=== PATIENT | male | born 1940 | race Caucasian/White ===

== ENCOUNTER 2019-08-14 15:04 | Emergency (ER) | payer MEDICARE, MEDICAID ==
[~2019-08-14] VITALS: Ht 157.5 cm; Wt 59.2 kg
--- NOTE | 2019-08-14 16:58 | REP ---
Two-view chest: 08/14/2019. Indication: Stroke. Comparison: 06/30/2015. Findings: Small left lower lobe air space consolidation is present without pleural effusion or pneumothorax. The cardiomediastinal silhouette is stable. Degenerative sequelae of the thoracic spine are noted. Impression: Small left lower lobe air space consolidation with aspiration and pneumonia considered. Electronically Signed by Kristofer De La Cruz DO 08/14/2019 04:50 P
--- NOTE | 2019-08-14 17:07 | REP ---
CT brain: 08/14/2019. Indication: Stroke. Comparison: None. Technique: New unenhanced axial CT images of the brain were obtained from skull base to vertex. Findings: There is no acute intracranial hemorrhage, acute cortical infarction, mass effect or hydrocephalous. Diffuse volume loss is present. Patchy areas of cerebral white matter hypoattenuation are present most consistent with chronic small vessel disease. Intracranial atherosclerotic disease is present. Impression: No acute intracranial process. Electronically Signed by Kristofer De La Cruz DO 08/14/2019 04:59 P
[2019-08-14 17:14] LABS: BASO % 0.6 % (0.0-1.0); EOS # 0.1 10^3/uL (0.0-0.5); EOS % 2.2 % (0.0-3.0); HEMOGLOBIN 13.4 g/dl (13.5-17.5); LYMPH # 1.2 10^3/uL (1.5-5.0); LYMPH % 23.5 % (24.0-44.0); MEAN CORPUSCULAR HEMOGLOBIN 31.2 pg (27.0-33.0); MEAN CORPUSCULAR HGB CONC 32.7 g/dl (32.0-36.5); MEAN CORPUSCULAR VOLUME 95.3 fl (80.0-96.0); MONO # 0.7 10^3/uL (0.0-0.8); MONO % 14.3 % (0.0-5.0); NEUTROPHILS % 59.2 % (36.0-66.0); PLATELET COUNT, AUTOMATED 241 10^3/uL (150-450)
[2019-08-14 17:46] LABS: ACETAMINOPHEN LEVEL < 2.0 UG/ML (10.0-30.0); ALBUMIN 3.1 GM/DL (3.2-5.2); ALT/SGPT 10 U/L (12-78); BILIRUBIN,DIRECT 0.1 MG/DL (0.0-0.2); BILIRUBIN,TOTAL 0.4 MG/DL (0.2-1.0); BLOOD UREA NITROGEN 8 MG/DL (7-18); CALCIUM LEVEL 8.5 MG/DL (8.8-10.2); CARBON DIOXIDE LEVEL 32 MEQ/L (21-32); CHLORIDE LEVEL 105 MEQ/L (98-107); CK-MB VALUE MASS 1.4 NG/ML (<3.6); CPK CREATINE PHOSPHOKINASE 33 U/L (39-308); CREATININE FOR GFR 0.72 MG/DL (0.70-1.30); GLOMERULAR FILTRATION RATE > 60.0 (>42); GLUCOSE, FASTING 92 MG/DL (70-100); MB/CK RELATIVE INDEX 4.24 (< OR =4); SALICYLATE LEVEL < 1.7 MG/DL (5.0-30.0); SODIUM LEVEL 140 MEQ/L (136-145); TOTAL PROTEIN 5.9 GM/DL (6.4-8.2); TROPONIN I < 0.02 NG/ML (< 0.10)
[2019-08-14] MEDS ORDERED: DOXY100C37 PO (17:59)
[2019-08-14 18:00] VITALS: BP 126/70
--- NOTE | 2019-08-14 21:07 | ECGEPIP ---
[facility] - ED Test Date: 2019-08-14 Pat Name: JOSE BENDER Department: Room: - Gender: Male Office Spec: mikel : 1940 Requested By: SHAUN BOLTON Order Number: [id number] Reading MD: Yony Mccarty Measurements Intervals [place] Rate: 62 P: 48 NH: 201 QRS: -28 QRSD: 110 T: 48 QT: 420 QTc: 427 Interpretive Statements SINUS RHYTHM BORDERLINE LEFT AXIS DEVIATION Low QRS complex voltage in the limb leads Electronically Signed on 08-14-2019 21:06:31 EST by Yony Mccarty
== END 2019-08-14 18:07 | disposition home or self-care (01) ==
LOC: M ED 15:04
DX: F03.90 Unspecified dementia, unspecified severity, without behavioral disturbance, psychotic disturbance, mood disturbance, and anxiety (principal); J18.1 Lobar pneumonia, unspecified organism
CPT/HCPCS: 70450; 71046; 80048; 80076; 82140; 82550; 82553; 84443; 84484; 85025; 93005; 93041; 94760; 99285; G0480

== ENCOUNTER 2019-11-06 09:36 | Inpatient (IN) | payer MEDICARE, MEDICAID ==
[~2019-11-06 09:36] MED LIST: DOXY100C37 PO
--- NOTE | 2019-11-06 10:50 | REP ---
Portable chest, 10:32 a.m., single frontal view: Comparisons are 08/14/2019 and 06/30/2015. The lung ann are clear. The cardiac size is normal. The sowmya, mediastinum, and skeletal structures are unremarkable. Impression: Negative portable chest. Electronically Signed by Italo Payton MD 11/06/2019 10:41 A
[2019-11-06 10:52] LABS: VENOUS HCO3 25.7 MEQ/L (23.0-27.0); VENOUS O2 SATURATION 84.1 % (60.0-80.0); VENOUS PARTIAL PRESSURE CO2 50.6 mmHg (38.0-50.0); VENOUS PARTIAL PRESSURE O2 50.4 mmHg (30.0-50.0); VENOUS PH 7.323 UNITS (7.330-7.430); VENOUS STANDARD HCO3 23.4 MEQ/L; VENOUS TOTAL CO2 27.2 MEQ/L (24.0-28.0)
[2019-11-06 10:55] LABS: BASO % 0.4 % (0.0-1.0); EOS % 0.6 % (0.0-3.0); HEMATOCRIT 39.1 % (42.0-52.0); HEMOGLOBIN 12.5 g/dl (13.5-17.5); LYMPH # 0.7 10^3/uL (1.5-5.0); LYMPH % 14.1 % (24.0-44.0); MEAN CORPUSCULAR HEMOGLOBIN 30.6 pg (27.0-33.0); MEAN CORPUSCULAR VOLUME 95.8 fl (80.0-96.0); MONO # 0.5 10^3/uL (0.0-0.8); NEUTROPHILS # 3.6 10^3/uL (1.5-8.5); NEUTROPHILS % 74.7 % (36.0-66.0); PLATELET COUNT, AUTOMATED 232 10^3/uL (150-450); RED BLOOD COUNT 4.08 10^6/uL (4.30-6.10); WHITE BLOOD COUNT 4.9 10^3/uL (4.0-10.0)
--- NOTE | 2019-11-06 11:09 | REP ---
CT BRAIN WITHOUT IV CONTRAST: CT brain performed without IV contrast. Coronal reconstruction images are performed. Moderate atrophy is unchanged when compared to the prior study of 08/14/2019. There is no midline shift or mass effect. Mild periventricular small vessel ischemic changes are stable. There is no acute intracranial hemorrhage or extra-axial fluid collection. Bone window examination is unremarkable. There are minor carotid siphon vascular calcifications. IMPRESSION: Chronic changes with no evidence of acute intracranial process. Electronically Signed by Italo Falk MD 11/07/2019 11:22 A
--- NOTE | 2019-11-06 11:21 | REP ---
And four views: There are no comparisons. I suspect there is soft tissue edema dorsally over the MCP articulations. This should be confirmed clinically. There is no fracture or dislocation. No calcifications or foreign bodies. The skeletal structures and soft tissues otherwise are unremarkable. Impression: Possible soft tissue edema dorsally over the MCP articulations. Correlate clinically. Otherwise, negative left hand. Electronically Signed by Italo Payton MD 11/06/2019 11:12 A
[2019-11-06 11:33] LABS: ALBUMIN 3.5 GM/DL (3.2-5.2); ALT/SGPT 12 U/L (12-78); BILIRUBIN,DIRECT 0.2 MG/DL (0.0-0.2); BILIRUBIN,TOTAL 0.5 MG/DL (0.2-1.0); BLOOD UREA NITROGEN 17 MG/DL (7-18); CALCIUM LEVEL 8.5 MG/DL (8.8-10.2); CARBON DIOXIDE LEVEL 29 MEQ/L (21-32); CHLORIDE LEVEL 107 MEQ/L (98-107); CK-MB VALUE MASS 2.8 NG/ML (<3.6); CPK CREATINE PHOSPHOKINASE 177 U/L (39-308); CREATININE FOR GFR 0.56 MG/DL (0.70-1.30); GLOMERULAR FILTRATION RATE > 60.0 (>42); GLUCOSE, FASTING 127 MG/DL (70-100); MB/CK RELATIVE INDEX 1.58 (< OR =4); POTASSIUM SERUM 4.2 MEQ/L (3.5-5.1); SODIUM LEVEL 139 MEQ/L (136-145); THYROID STIMULATING HORMONE 0.871 uIU/ML (0.358-3.740); TOTAL PROTEIN 6.3 GM/DL (6.4-8.2); TROPONIN I < 0.02 NG/ML (< 0.10)
[2019-11-06 11:42] LABS: OSMOLALITY SERUM 292 MOSM/KG (280-301)
[2019-11-06] MEDS ORDERED: PERCTAB2 PO (12:10)
[2019-11-06] MEDS ORDERED: ACETAMINOPHEN TAB 650MG DOSE (2X325MG) PO PRN (14:15)
[2019-11-06] MEDS ORDERED: HALOPERIDOL 5 MG/ML VIAL (J1630) IV PRN (15:00)
[2019-11-06 15:06] VITALS: BP 138/74
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
[2019-11-06] MEDS: DONEPEZIL 5 MG TAB PO SCH (20:14)
[2019-11-06] MEDS: DOCUSATE SODIUM 100 MG CAP PO SCH (20:14)
[2019-11-06] MEDS: traZODone 25MG PER 1/2 TABLET PO SCH (20:14)
[2019-11-06 22:00] VITALS: BP 121/72
[2019-11-07 06:00] VITALS: BP 123/74
[2019-11-07] MEDS: lisinopriL 10 MG TAB PO SCH ×2 (09:00→09:18)
[2019-11-07] MEDS: MEMANTINE 5MG TABLET (NAMENDA) PO SCH ×2 (09:00→09:18)
[2019-11-07] MEDS: ENOXAPARIN 40 MG/0.4 ML SYRINGE (J1650) SC SCH ×2 (09:00→09:17)
[2019-11-07] MEDS: DOCUSATE SODIUM 100 MG CAP PO SCH ×3 (09:00→21:09)
[2019-11-07 10:26] LABS: TOTAL 25(OH) VITAMIN D 15.6 NG/ML (30.0-100.0)
[2019-11-07 10:28] LABS: FOLATE 7.9 NG/ML (>5.4); VITAMIN B12 LEVEL 206 PG/ML (247-911)
--- NOTE | 2019-11-07 11:30 | IPNPDOC ---
Subjective Date Seen The patient was seen on 11/07/19. Subjective Chief Complaint/HPI Remains pleasantly demented. 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 No reports of aggressiveness toward the staff. Objective Physical Examination General Exam: Positive: Alert, No Acute Distress, Other (pleasantly demented) Eye Exam: Positive: PERRLA, Conjunctiva & lids normal, EOMI; Negative: Sclera icteric ENT Exam: Positive: Atraumatic, Mucous membr. moist/pink, Pharynx Normal Neck Exam: Positive: Supple; Negative: JVD, thyromegaly Chest Exam: Positive: Clear to auscultation, Normal air movement Heart Exam: Positive: Rate Normal, Regular Rhythm, Normal S1, Normal S2; Negative: Murmurs, Rubs Telemetry: Positive: No significant arrhythmia Abdomen Exam: Positive: Normal bowel sounds, Soft; Negative: Tenderness, Hepatospenomegaly Male Exam: Positive: Normal Genital Exam Extremity Exam: Positive: Normal pulses; Negative: Clubbing, Cyanosis, Edema Skin Exam: Positive: Nl turgor and temperature; Negative: Rash, Breakdown Neuro Exam: Positive: Normal Gait, Normal Speech, Cranial Nerves 3-12 NL, Reflexes 2+ Psych Exam: Positive: Mood NL, Other (oriented to self only at baseline) Assessment /Plan Assessment # Advanced dementia - family unable to care for him at home due to safety concerns - not presviously treated, started on namenda + aricept upon admission - trazodone qhs - IV haldol prn - bedside sitter # B12 deficiency - start b12 supplementation # Vitamin D deficiency - start vitamin d 1000 units daily # HTN - controlled on lisinopril Dispo: awaiting long-term placement Plan/VTE VTE Prophylaxis Ordered?: Yes VTE Exclusion Mechanical Proph: N/A:VTE Prophy Ordered VTE Exclusion Pharmacological: N/A:VTE Prophy Ordered (lovenox) VS, I&O, 24H, Fishbone Vital Signs/I&O Vital Signs Date Time Temp Pulse Resp B/P (MAP) Pulse Ox O2 Delivery O2 Flow Rate FiO2 11/07/19 06:00 97.9 64 20 123/74 (90) 99 Room Air I&O- Last 24 Hours up to 6 AM 11/07/19 06:00 Intake Total 1120 ml Output Total 0 ml Balance 1120 ml Laboratory Data 24H LABS Laboratory Tests 2 11/06/19 12:08: Urine Color YELLOW, Urine Appearance CLEAR, Urine pH 6.0, Urine Specific [place] 1.017, Urine Protein NEGATIVE, Urine Glucose (UA) NEGATIVE, Urine Ketones NEGATIVE, Urine Blood NEGATIVE, Urine Nitrite NEGATIVE, Urine Bilirubin NEGATIVE, Urine Urobilinogen 4.0H, Urine Leukocyte Esterase NEGATIVE, Urine WBC (Auto) 2, Urine RBC (Auto) 1, Urine Hyaline Casts (Auto) 0, Urine Bacteria (Auto) 1+H, Urine Squamous Epithelial Cells 0, Urine Amorphous Sediment SMALLH, Urine Mucus (Auto) SMALL, Urine Sperm (Auto) Microbiology Microbiology 11/06/19 Blood Culture - Preliminary, Resulted No growth after 24 hours . All specim... 11/06/19 Blood Culture - Preliminary, Resulted No growth after 24 hours . All specim... CHANTE GEE MD Nov 07, 2019 11:30
--- NOTE | 2019-11-07 13:17 | ECGEPIP ---
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
[2019-11-07 14:00] VITALS: BP 105/69
[2019-11-07] MEDS: traZODone 25MG PER 1/2 TABLET PO SCH (21:10)
[2019-11-07] MEDS: DONEPEZIL 5 MG TAB PO SCH (21:10)
[2019-11-07 22:00] VITALS: BP 109/70
[2019-11-08 06:00] VITALS: BP 114/73
[2019-11-08] MEDS: ENOXAPARIN 40 MG/0.4 ML SYRINGE (J1650) SC SCH (09:00)
[2019-11-08] MEDS: lisinopriL 10 MG TAB PO SCH (09:00)
--- NOTE | 2019-11-08 11:06 | IPNPDOC ---
Subjective Date Seen The patient was seen on 11/08/19. Subjective Chief Complaint/HPI Wei is doing fine. He has not slept through the night per his nurse. Objective Physical Examination General Exam: Positive: Alert, No Acute Distress, Other (pleasantly demented) Eye Exam: Positive: PERRLA, EOMI; Negative: Sclera icteric ENT Exam: Positive: Atraumatic, Mucous membr. moist/pink Neck Exam: Positive: Supple; Negative: JVD, thyromegaly Chest Exam: Positive: Clear to auscultation, Normal air movement Heart Exam: Positive: Rate Normal, Regular Rhythm, Normal S1, Normal S2; Negative: Murmurs, Rubs Telemetry: Positive: No significant arrhythmia Abdomen Exam: Positive: Normal bowel sounds, Soft; Negative: Tenderness, Hepatospenomegaly Male Exam: Positive: Normal Genital Exam Extremity Exam: Positive: Normal pulses; Negative: Clubbing, Cyanosis, Edema Skin Exam: Positive: Nl turgor and temperature; Negative: Rash, Breakdown Neuro Exam: Positive: Normal Gait, Normal Speech, Strength at 5/5 X4 ext Psych Exam: Positive: Mood NL, Other (oriented to self only at baseline) Assessment /Plan Assessment # Advanced dementia with aggressive behavior - no aggressive behavior reported by staff - tolerating namenda + aricept upon admission - increase trazodone 50 mg qhs - IV haldol prn - continue bedside sitter # B12 deficiency (new dx) - cyanocobalamin # Vitamin D deficiency (new dx) - vitamin d 1000 units daily # HTN - controlled on lisinopril Dispo: awaiting long-term placement Plan/VTE VTE Prophylaxis Ordered?: Yes VTE Exclusion Mechanical Proph: N/A:VTE Prophy Ordered VTE Exclusion Pharmacological: N/A:VTE Prophy Ordered (lovenox) VS, I&O, 24H, Fishbone Vital Signs/I&O Vital Signs Date Time Temp Pulse Resp B/P (MAP) Pulse Ox O2 Delivery O2 Flow Rate FiO2 11/08/19 06:00 98.0 86 20 114/73 (87) 97 Room Air I&O- Last 24 Hours up to 6 AM 11/08/19 06:00 Intake Total 780 ml Output Total 0 ml Balance 780 ml Laboratory Data Microbiology Microbiology 11/06/19 Blood Culture - Preliminary, Resulted No growth after 24 hours . All specim... 11/06/19 Blood Culture - Preliminary, Resulted No Growth after 48 hours. All Specime... CHANTE GEE MD Nov 08, 2019 11:06
[2019-11-08] MEDS: MEMANTINE 5MG TABLET (NAMENDA) PO SCH (11:17)
[2019-11-08] MEDS: CYANOCOBALAMIN 500 MCG TAB PO SCH (11:18)
[2019-11-08] MEDS: DOCUSATE SODIUM 100 MG CAP PO SCH ×3 (11:18→19:39)
[2019-11-08] MEDS: VITAMIN D 1,000 INTERNATIONAL UNITS TABLET PO SCH (11:18)
[2019-11-08 14:00] VITALS: BP 120/74
[2019-11-08] MEDS: traZODone 50 MG TAB PO SCH (19:33)
[2019-11-08] MEDS: DONEPEZIL 5 MG TAB PO SCH (19:33)
[2019-11-08] MEDS ORDERED: HALOPERIDOL 5 MG/ML VIAL (J1630) IM PRN (20:00)
[2019-11-08 21:11] LABS: APPEARANCE, URINE CLEAR (CLEAR); BACTERIA, URINE AUTO NEGATIVE (NEGATIVE); BILIRUBIN, URINE AUTO NEGATIVE (NEGATIVE); BLOOD, URINE BLOOD NEGATIVE (NEGATIVE); COLOR, URINE YELLOW (YELLOW); GLUCOSE, URINE (UA) AUTO NEGATIVE (NEGATIVE); KETONE, URINE AUTO NEGATIVE (NEGATIVE); LEUKOCYTE ESTERASE, URINE AUTO NEGATIVE (NEGATIVE); NITRITE, URINE AUTO NEGATIVE (NEGATIVE); PROTEIN, URINE AUTO NEGATIVE (NEGATIVE); RBC, URINE AUTO 0 /HPF (0-3); SQUAMOUS EPITHELIAL CELL UR AU 0 /HPF (0-6); UROBILINOGEN, URINE AUTO 0.2 mg/dL (0.0-2.0); WBC, URINE AUTO 1 /HPF (0-3)
[2019-11-08 22:00] VITALS: BP 128/97
[2019-11-09 06:00] VITALS: BP 130/79
[2019-11-09 07:49] LABS: HEMATOCRIT 38.7 % (42.0-52.0); HEMOGLOBIN 12.8 g/dl (13.5-17.5); MEAN CORPUSCULAR HEMOGLOBIN 30.8 pg (27.0-33.0); MEAN CORPUSCULAR HGB CONC 33.1 g/dl (32.0-36.5); MEAN CORPUSCULAR VOLUME 93.3 fl (80.0-96.0); PLATELET COUNT, AUTOMATED 267 10^3/uL (150-450); RED BLOOD COUNT 4.15 10^6/uL (4.30-6.10); WHITE BLOOD COUNT 4.1 10^3/uL (4.0-10.0)
[2019-11-09] MEDS: MEMANTINE 5MG TABLET (NAMENDA) PO SCH (08:56)
[2019-11-09] MEDS: VITAMIN D 1,000 INTERNATIONAL UNITS TABLET PO SCH (08:56)
[2019-11-09 08:57] VITALS: BP 130/79
[2019-11-09] MEDS: lisinopriL 10 MG TAB PO SCH (08:57)
[2019-11-09] MEDS: CYANOCOBALAMIN 500 MCG TAB PO SCH (08:57)
[2019-11-09] MEDS: DOCUSATE SODIUM 100 MG CAP PO SCH ×3 (08:57→21:32)
[2019-11-09] MEDS: ENOXAPARIN 40 MG/0.4 ML SYRINGE (J1650) SC SCH (08:57)
--- NOTE | 2019-11-09 11:05 | IPNPDOC ---
Subjective Date Seen The patient was seen on 11/09/19. Subjective Chief Complaint/HPI D/w RN this am, he slept well. No active issues. Objective Physical Examination General Exam: Positive: Alert, No Acute Distress Eye Exam: Positive: Conjunctiva & lids normal; Negative: Sclera icteric ENT Exam: Positive: Mucous membr. moist/pink Neck Exam: Positive: Supple; Negative: JVD, thyromegaly Chest Exam: Positive: Clear to auscultation Heart Exam: Positive: Rate Normal, Regular Rhythm, Normal S1, Normal S2; Negative: Murmurs, Rubs Abdomen Exam: Positive: Normal bowel sounds, Soft; Negative: Tenderness, Hepatospenomegaly Male Exam: Positive: Normal Genital Exam Extremity Exam: Positive: Normal pulses; Negative: Clubbing, Cyanosis, Edema Skin Exam: Negative: Rash Neuro Exam: Positive: Normal Gait, Normal Speech Psych Exam: Positive: Mood NL, Other Assessment /Plan Assessment # Advanced dementia with aggressive behavior - no aggressive behavior noted since admission, but likes to wander in the hallways - tolerating namenda + aricept upon admission - trazodone 50 mg qhs - IM haldol prn agitation - continue bedside sitter - ok to leave PIV out # B12 deficiency (new dx) - cyanocobalamin # Vitamin D deficiency (new dx) - vitamin d 1000 units daily # HTN - controlled on lisinopril Dispo: awaiting long-term placement Plan/VTE VTE Prophylaxis Ordered?: Yes VTE Exclusion Mechanical Proph: N/A:VTE Prophy Ordered VTE Exclusion Pharmacological: N/A:VTE Prophy Ordered (lovenox) VS, I&O, 24H, Fishbone Vital Signs/I&O Vital Signs Date Time Temp Pulse Resp B/P (MAP) Pulse Ox O2 Delivery O2 Flow Rate FiO2 11/09/19 08:57 130/79 11/09/19 06:00 97.7 72 18 98 Room Air I&O- Last 24 Hours up to 6 AM 11/09/19 06:00 Intake Total 1876 ml Output Total 200 ml Balance 1676 ml Laboratory Data 24H LABS Laboratory Tests 2 11/08/19 20:56: Urine Color YELLOW, Urine Appearance CLEAR, Urine pH 6.0, Urine Specific [place] 1.010, Urine Protein NEGATIVE, Urine Glucose (Auto)(UA) NEGATIVE, Urine Ketones (Auto) NEGATIVE, Urine Blood NEGATIVE, Urine Nitrite NEGATIVE, Urine Bilirubin NEGATIVE, Urine Urobilinogen 0.2, Urine Leukocyte Esterase (Auto) NEGATIVE, Uri ne WBC (Auto) 1, Urine RBC (Auto) 0, Urine Hyaline Casts (Auto) 0, Urine Bacteria (Auto) NEGATIVE, Urine Squamous Epithelial Cells 0, Urine Sperm (Auto) 11/09/19 07:34: Nucleated Red Blood Cells % (auto) 0.0 CBC/BMP Laboratory Tests 11/09/19 07:34 Microbiology Microbiology 11/06/19 Blood Culture - Preliminary, Resulted No Growth after 48 hours. All Specime... 11/06/19 Blood Culture - Preliminary, Resulted No Growth after 72 hours. All specime... CHANTE GEE MD Nov 09, 2019 11:05
[2019-11-09 14:00] VITALS: BP 132/75
[2019-11-09] MEDS: DONEPEZIL 5 MG TAB PO SCH (21:25)
[2019-11-09] MEDS: traZODone 50 MG TAB PO SCH (21:25)
[2019-11-09 22:00] VITALS: BP 131/59
[2019-11-10 06:00] VITALS: BP 112/83
--- NOTE | 2019-11-10 10:23 | IPNPDOC ---
Subjective Date Seen The patient was seen on 11/10/19. Subjective Chief Complaint/HPI Doing well this am, remains dressed in street clothes. He's awaiting placement to a locked dementia unit, continues to be pleasantly demented. No overnight events reported by staff. Objective Physical Examination General Exam: Positive: Alert, No Acute Distress Eye Exam: Negative: Sclera icteric ENT Exam: Positive: Atraumatic Neck Exam: Positive: Supple; Negative: JVD, thyromegaly Chest Exam: Positive: Clear to auscultation Heart Exam: Positive: Regular Rhythm, Normal S1, Normal S2; Negative: Murmurs, Rubs Abdomen Exam: Positive: Normal bowel sounds, Soft; Negative: Tenderness, Hepatospenomegaly Male Exam: Positive: Normal Genital Exam Extremity Exam: Positive: Normal pulses; Negative: Clubbing, Cyanosis, Edema Skin Exam: Negative: Rash Neuro Exam: Positive: Normal Gait, Normal Speech Psych Exam: Positive: Mood NL, Other Assessment /Plan Assessment # Advanced dementia with aggressive behavior - no aggressive behavior noted since admission, but likes to wander in the hallways - tolerating namenda + aricept, can uptitrate as needed weekly - trazodone 50 mg qhs - IM haldol prn agitation - continue bedside sitter because he likes to wander away - change to ALC status # B12 deficiency (new dx) - cyanocobalamin # Vitamin D deficiency (new dx) - vitamin d 1000 units daily # HTN - controlled on lisinopril Dispo: awaiting long-term placement Plan/VTE VTE Prophylaxis Ordered?: Yes VTE Exclusion Mechanical Proph: N/A:VTE Prophy Ordered VTE Exclusion Pharmacological: N/A:VTE Prophy Ordered (lovenox) VS, I&O, 24H, Fishbone Vital Signs/I&O Vital Signs Date Time Temp Pulse Resp B/P (MAP) Pulse Ox O2 Delivery O2 Flow Rate FiO2 11/10/19 06:00 97.2 68 18 112/83 (93) 97 Room Air I&O- Last 24 Hours up to 6 AM 11/10/19 05:59 Intake Total 660 ml Balance 660 ml Laboratory Data Microbiology Microbiology 11/06/19 Blood Culture - Preliminary, Resulted No Growth after 72 hours. All specime... 11/06/19 Blood Culture - Preliminary, Resulted No Growth after 72 hours. All specime... CHANTE GEE MD Nov 10, 2019 10:23
[2019-11-10] MEDS: DOCUSATE SODIUM 100 MG CAP PO SCH ×2 (10:26→21:14)
[2019-11-10] MEDS: MEMANTINE 5MG TABLET (NAMENDA) PO SCH (10:26)
[2019-11-10] MEDS: ENOXAPARIN 40 MG/0.4 ML SYRINGE (J1650) SC SCH (10:27)
[2019-11-10] MEDS: CYANOCOBALAMIN 500 MCG TAB PO SCH (10:27)
[2019-11-10] MEDS: lisinopriL 10 MG TAB PO SCH (10:27)
[2019-11-10] MEDS: VITAMIN D 1,000 INTERNATIONAL UNITS TABLET PO SCH (10:27)
[2019-11-10] MEDS: traZODone 50 MG TAB PO SCH (21:14)
[2019-11-10] MEDS: DONEPEZIL 5 MG TAB PO SCH (21:14)
[2019-11-11 06:00] VITALS: BP 129/78
[2019-11-11] MEDS: ENOXAPARIN 40 MG/0.4 ML SYRINGE (J1650) SC SCH ×2 (08:05→09:00)
[2019-11-11] MEDS: CYANOCOBALAMIN 500 MCG TAB PO SCH ×2 (08:05→08:51)
[2019-11-11] MEDS: VITAMIN D 1,000 INTERNATIONAL UNITS TABLET PO SCH ×2 (08:05→08:52)
[2019-11-11] MEDS: MEMANTINE 5MG TABLET (NAMENDA) PO SCH ×2 (08:05→08:51)
[2019-11-11] MEDS: lisinopriL 10 MG TAB PO SCH ×2 (08:07→08:52)
[2019-11-11] MEDS: DOCUSATE SODIUM 100 MG CAP PO SCH ×3 (08:08→20:52)
[2019-11-11] MEDS ORDERED: DOCU100C16 PO (12:31)
[2019-11-11] MEDS ORDERED: VITA500T40 PO (12:31)
[2019-11-11] MEDS ORDERED: LISI10TA4 PO (12:31)
[2019-11-11] MEDS ORDERED: TRAZ-252 PO (12:31)
[2019-11-11] MEDS ORDERED: ACET1TAB55 PO (12:31)
[2019-11-11] MEDS ORDERED: VITAD1000T PO (12:31)
[2019-11-11] MEDS ORDERED: ARIC1TAB PO (12:31)
[2019-11-11] MEDS ORDERED: MEMA1TAB3 PO (12:31)
[2019-11-11] MEDS: DONEPEZIL 5 MG TAB PO SCH (20:52)
[2019-11-11] MEDS: traZODone 50 MG TAB PO SCH (20:52)
[2019-11-12 06:00] VITALS: BP 131/83
[2019-11-12] MEDS: ENOXAPARIN 40 MG/0.4 ML SYRINGE (J1650) SC SCH (08:30)
[2019-11-12] MEDS: DOCUSATE SODIUM 100 MG CAP PO SCH (08:30)
[2019-11-12] MEDS: VITAMIN D 1,000 INTERNATIONAL UNITS TABLET PO SCH ×2 (08:30→08:48)
[2019-11-12] MEDS: lisinopriL 10 MG TAB PO SCH ×2 (08:30→08:48)
[2019-11-12] MEDS: CYANOCOBALAMIN 500 MCG TAB PO SCH ×2 (08:31→08:48)
[2019-11-12] MEDS: MEMANTINE 5MG TABLET (NAMENDA) PO SCH ×2 (08:31→08:47)
[2019-11-12] MEDS ORDERED: LORazepam 2 MG/ML VIAL (J2060) IM STA (10:53)
[2019-11-12] MEDS ORDERED: LORazepam 1 MG TAB PO PRN (11:30)
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
--- NOTE | 2019-11-12 13:42 | IPNPDOC ---
Subjective Date Seen The patient was seen on 11/11/19. Subjective Chief Complaint/HPI Patient comfortable offers no new complaints, possible discharge to snf facility today General: Denies: ROS Unobtainable, Chills, Night Sweats, Fatigue, Malaise, Normal Appetite, Other Symptoms Constitutional: Denies: Chills, Fever, Malaise, Night Sweats, Weakness, Fatigue, Weight Loss, Lethargy, Other Skin: Denies: Rash, Lesions, Jaundice, Bruising, Itching, Dry, Breakdown, Nail Changes, Other Pulmonary: Denies: Dyspnea, Cough, Pleuritic Chest Pain, Other Symptoms Cardiovascular: Denies: Chest Pain, Palpitations, Orthopnea, Paroxysmal Noc. Dyspnea, Edema, Lt Headedness, Other Symptoms Musculoskeletal: Denies: Neck Pain, Back Pain, Shoulder Pain, Arm Pain, Hand Pain, Leg Pain, Foot Pain, Joint Pain, Muscle Pain, Spasms, Other Symptoms Neurological: Denies: Weakness, Numbness, Incoordination, Change in speech, Confusion, Seizures, Other Symptoms Objective Physical Examination Eye Exam: Negative: Sclera icteric ENT Exam: Positive: Atraumatic Neck Exam: Positive: Supple; Negative: JVD, thyromegaly Chest Exam: Positive: Clear to auscultation Heart Exam: Positive: Regular Rhythm, Normal S1, Normal S2; Negative: Murmurs, Rubs Abdomen Exam: Positive: Normal bowel sounds, Soft; Negative: Tenderness, Hepatospenomegaly Male Exam: Positive: Normal Genital Exam Extremity Exam: Positive: Normal pulses; Negative: Clubbing, Cyanosis, Edema Skin Exam: Negative: Rash Neuro Exam: Positive: Normal Gait, Normal Speech Psych Exam: Positive: Mood NL, Other Assessment /Plan Problems (1) Dementia Status: Chronic Problem Text: Advanced dementia with aggressive behavior - no aggressive behavior noted since admission, but likes to wander in the hallways - tolerating namenda + aricept, can uptitrate as needed weekly - trazodone 50 mg qhs - IM haldol prn agitation - continue bedside sitter because he likes to wander away - change to [facility] status -Possible discharge to snf facility today (2) Vitamin D deficiency Status: Chronic Problem Text: Vitamin D deficiency (new dx) - vitamin d 1000 units daily (3) Vitamin B12 deficiency Status: Chronic Problem Text: B12 deficiency (new dx) - cyanocobalamin (4) HTN (hypertension) Status: Chronic Problem Text: HTN - controlled on lisinopril Plan/VTE VTE Prophylaxis Ordered?: Yes VTE Exclusion Mechanical Proph: N/A:VTE Prophy Ordered VTE Exclusion Pharmacological: N/A:VTE Prophy Ordered (lovenox) VS, I&O, 24H, Fishbone Vital Signs/I&O Vital Signs Date Time Temp Pulse Resp B/P (MAP) Pulse Ox O2 Delivery O2 Flow Rate FiO2 11/12/19 06:00 97.5 67 17 131/83 (99) 98 Room Air I&O- Last 24 Hours up to 6 AM 11/12/19 06:00 Intake Total 2515 ml Output Total 0 ml Balance 2515 ml Laboratory Data Microbiology Microbiology 11/06/19 Blood Culture - Final, Complete NO GROWTH AFTER 5 DAYS 11/06/19 Blood Culture - Final, Complete NO GROWTH AFTER 5 DAYS PETE MCRAE MD Nov 12, 2019 13:41
== END 2019-11-12 11:34 | DRG 884 ==
LOC: M ED 09:36 → M ED INP 14:08 → ENRESERVTM 14:42 → ENRESERVDT 14:42 → M MSPAV 15:10
PROVIDERS: ADMIT Internal Medicine; ATTEND Internal Medicine
DX: F03.91 Unspecified dementia, unspecified severity, with behavioral disturbance (principal); I10 Essential (primary) hypertension; E53.8 Deficiency of other specified B group vitamins; E55.9 Vitamin D deficiency, unspecified; Z79.899 Other long term (current) drug therapy

== ENCOUNTER 2023-09-16 16:52 | Inpatient (IN) | payer MEDICARE, MEDICAID ==
[~2023-09-16] VITALS: Ht 162.6 cm; Wt 46.6 kg
[~2023-09-16 16:52] MED LIST changes: +ACET1TAB55 PO; +ARIC1TAB PO; +DOCU100C16 PO; +DOXY-443 PO; -DOXY100C37 PO; +LISI10TA22 PO; +MEMA1TAB3 PO; +PERCTAB2 PO; +TRAZ-252 PO; +VITA100093 PO; +VITA500T40 PO
[2023-09-16 18:48] LABS: BASO % 0.3 % (0.0-1.0); EOS % 0.2 % (0.0-3.0); HEMATOCRIT 38.7 % (42.0-52.0); HEMOGLOBIN 11.6 g/dl (13.5-17.5); LYMPH # 0.8 10^3/uL (1.5-5.0); MEAN CORPUSCULAR HEMOGLOBIN 26.2 pg (27.0-33.0); MEAN CORPUSCULAR VOLUME 87.4 fl (80.0-96.0); MONO # 0.9 10^3/uL (0.0-0.8); MONO % 8.1 % (2.0-8.0); NEUTROPHILS # 9.4 10^3/uL (1.5-8.5); NEUTROPHILS % 84.2 % (36.0-66.0); PLATELET COUNT, AUTOMATED 412 10^3/uL (150-450); RED BLOOD COUNT 4.43 10^6/uL (4.30-6.10); WHITE BLOOD COUNT 11.2 10^3/uL (4.0-10.0)
[2023-09-16] MEDS ORDERED: AZITHROMYCIN INJ 500 MG, VIAL MATE ADAPTER 1 EACH in D5W 250 ML IV ONE (19:15)
[2023-09-16] MEDS ORDERED: cefTRIAXone SOD 2 GM in D5W MINI-BAG PLUS 50 ML IV ONE (19:15)
[2023-09-16 19:19] LABS: ALBUMIN 2.4 G/DL (3.2-5.2); ALKALINE PHOSPHATASE 186 U/L (46-116); ALT/SGPT 19 U/L (7.0-40); AST/SGOT 50 U/L (<34); BILIRUBIN,TOTAL 0.7 MG/DL (0.3-1.2); BLOOD UREA NITROGEN 24 MG/DL (9-23); CALCIUM LEVEL 8.6 MG/DL (8.3-10.6); CARBON DIOXIDE LEVEL 25 MMOL/L (20-31); CHLORIDE LEVEL 109 MMOL/L (98-107); CREATININE FOR GFR 0.46 MG/DL (0.70-1.30); GLOMERULAR FILTRATION RATE > 60.0 (>35); GLUCOSE, FASTING 120 MG/DL (74-106); POTASSIUM SERUM 5.4 MMOL/L (3.5-5.1); SODIUM LEVEL 145 MMOL/L (136-145); TOTAL PROTEIN 6.5 G/DL (5.7-8.2)
[2023-09-16 19:33] LABS: RSV AMPLIFICATION NEGATIVE (NEGATIVE)
[2023-09-16] MEDS: NS 1,000 ML IV SCH ×2 (19:39→23:25)
[2023-09-16] MEDS ORDERED: NS 1,000 ML IV ONE (19:55)
[2023-09-16] MEDS ORDERED: NS 420 ML in IV 1 EA IV ONE (20:15)
[2023-09-16] MEDS ORDERED: VALPROATE SOD INJ 500 MG in D5W 50 ML IV SCH (21:00)
[2023-09-16] MEDS ORDERED: NS 500 ML IV ONE (21:35)
[2023-09-16] MEDS ORDERED: ALBUTEROL SULFATE 2.5MG/0.5ML INH NEB SOLN NEB PRN (21:45)
[2023-09-16] MEDS ORDERED: RISP0.253 PO (21:57)
[2023-09-16] MEDS ORDERED: LACT10SO3 PO (21:57)
[2023-09-16] MEDS ORDERED: TRAM50TA2 PO (21:57)
[2023-09-16] MEDS ORDERED: ATOR40TA75 PO (21:57)
[2023-09-16] MEDS ORDERED: RISP-8 PO (21:57)
[2023-09-16] MEDS ORDERED: VALP250S PO (21:57)
[2023-09-16] MEDS ORDERED: ASPI81TA26 PO (21:57)
[2023-09-16] MEDS ORDERED: HOME MED LIST COMPLETE! XX SCH (22:00)
[2023-09-16] MEDS ORDERED: APAP500T10 PO (22:00)
[2023-09-16] MEDS ORDERED: TRAZ-252 PO (22:00)
[2023-09-16] MEDS ORDERED: VITA500045 PO (22:00)
[2023-09-16] MEDS ORDERED: HYDROCORTISONE 100MG/2ML VIAL IV ONE (23:00)
[2023-09-16] MEDS: NOREPINEPHRINE 4MG IN D5 250ML 4 MG in IV 1 EA IV SCH ×2 (23:27)
[2023-09-16 23:56] VITALS: BP 113/56; TEMP 100.9
[2023-09-17] VITALS (37 sets, daily range): BP systolic 46–221; BP diastolic 25–182; TEMP 99–99.2; O2SAT 86–96
[2023-09-17] MEDS: IPRATROPIUM 0.5MG/ALBUTEROL 2.5MG INH SOL UD 3ML (DUONEB) NEB SCH ×2 (01:03→07:15)
[2023-09-17] MEDS: NOREPINEPHRINE 4MG IN D5 250ML 4 MG in IV 1 EA IV SCH ×2 (04:45)
[2023-09-17 05:32] LABS: ALBUMIN 1.8 G/DL (3.2-5.2); ALKALINE PHOSPHATASE 211 U/L (46-116); ALT/SGPT 31 U/L (7.0-40); AST/SGOT 72 U/L (<34); BILIRUBIN,TOTAL 1.1 MG/DL (0.3-1.2); BLOOD UREA NITROGEN 26 MG/DL (9-23); CALCIUM LEVEL 7.8 MG/DL (8.3-10.6); CARBON DIOXIDE LEVEL 18 MMOL/L (20-31); CHLORIDE LEVEL 117 MMOL/L (98-107); CREATININE FOR GFR 0.81 MG/DL (0.70-1.30); GLOMERULAR FILTRATION RATE > 60.0 (>35); GLUCOSE, FASTING 114 MG/DL (74-106); MAGNESIUM LEVEL 1.4 MG/DL (1.8-2.4); POTASSIUM SERUM 3.3 MMOL/L (3.5-5.1); SODIUM LEVEL 151 MMOL/L (136-145); TOTAL PROTEIN 4.8 G/DL (5.7-8.2)
[2023-09-17] MEDS ORDERED: ONDANSETRON 4MG 2ML VIAL IV PRN (06:10)
[2023-09-17] MEDS: SCOPOLAMINE 1MG TRANSDERMAL PATCH TOP PRN (06:37)
[2023-09-17] MEDS: MORPHINE 2 MG/ML 1ML VIAL IV PRN ×4 (06:37→19:44)
[2023-09-17] MEDS ORDERED: HEPARIN SOD (PORCINE) 5000UNITS/ML 1ML VIAL/SYRINGE SC SCH (09:00)
[2023-09-17] MEDS: LORazepam 2 MG/ML 1ML VIAL IV PRN (12:48)
[2023-09-17] MEDS ORDERED: cefTRIAXone SOD 2 GM in D5W MINI-BAG PLUS 50 ML IV SCH (20:00)
[2023-09-17] MEDS ORDERED: AZITHROMYCIN INJ 500 MG, VIAL MATE ADAPTER 1 EACH in D5W 250 ML IV SCH (21:00)
[2023-09-18] MEDS: MORPHINE 2 MG/ML 1ML VIAL IV PRN ×6 (00:25→18:36)
[2023-09-18] MEDS: LORazepam 2 MG/ML 1ML VIAL IV PRN ×2 (11:47→18:36)
[2023-09-18] MEDS ORDERED: MORPHINE 10MG/0.5ML ORAL CONCENTRATE SOLUTION U/D SL PRN (19:30)
[2023-09-18] MEDS ORDERED: LORazepam 1 MG TAB PO PRN (19:30)
[2023-09-18] MEDS: MORPHINE 10MG/0.5ML ORAL CONCENTRATE SOLUTION U/D SL PRN ×2 (19:56→22:16)
[2023-09-18] MEDS: LORazepam 1 MG TAB PO PRN ×2 (19:56→22:15)
[2023-09-19] MEDS: MORPHINE 10MG/0.5ML ORAL CONCENTRATE SOLUTION U/D SL PRN ×8 (02:37→21:08)
[2023-09-19] MEDS: LORazepam 1 MG TAB PO PRN ×8 (02:37→21:09)
[2023-09-20] MEDS: LORazepam 1 MG TAB PO PRN ×7 (01:15→19:50)
[2023-09-20] MEDS: MORPHINE 10MG/0.5ML ORAL CONCENTRATE SOLUTION U/D SL PRN ×7 (01:16→19:49)
[2023-09-21] MEDS: LORazepam 1 MG TAB PO PRN ×7 (00:13→20:05)
[2023-09-21] MEDS: MORPHINE 10MG/0.5ML ORAL CONCENTRATE SOLUTION U/D SL PRN ×7 (00:13→20:05)
[2023-09-22] MEDS: LORazepam 1 MG TAB PO PRN ×5 (02:44→20:50)
[2023-09-22] MEDS: MORPHINE 10MG/0.5ML ORAL CONCENTRATE SOLUTION U/D SL PRN ×5 (02:45→20:50)
[2023-09-23] MEDS: LORazepam 1 MG TAB PO PRN ×4 (00:22→11:22)
[2023-09-23] MEDS: MORPHINE 10MG/0.5ML ORAL CONCENTRATE SOLUTION U/D SL PRN ×4 (00:23→11:24)
[2023-09-24] MEDS: MORPHINE 10MG/0.5ML ORAL CONCENTRATE SOLUTION U/D SL PRN ×8 (12:27→22:47)
[2023-09-24] MEDS: LORazepam 1 MG TAB PO PRN ×2 (16:34→22:46)
[2023-09-24] MEDS: SCOPOLAMINE 1MG TRANSDERMAL PATCH TOP PRN (16:40)
[2023-09-25] MEDS: MORPHINE 10MG/0.5ML ORAL CONCENTRATE SOLUTION U/D SL PRN ×6 (00:05→14:13)
== END 2023-09-25 15:38 | disposition expired | DRG 871 ==
LOC: M ED 16:52 → M ED INP 22:01 → M ICU 23:47 → M MS5PR 09-17 16:29
PROVIDERS: ADMIT Internal Medicine; ATTEND Internal Medicine
DX: A41.9 Sepsis, unspecified organism (principal); E43 Unspecified severe protein-calorie malnutrition; R65.21 Severe sepsis with septic shock; J15.69 Pneumonia due to other Gram-negative bacteria; G93.41 Metabolic encephalopathy; E87.0 Hyperosmolality and hypernatremia; Z68.1 Body mass index [BMI] 19.9 or less, adult; E78.5 Hyperlipidemia, unspecified; F03.90 Unspecified dementia, unspecified severity, without behavioral disturbance, psychotic disturbance, mood disturbance, and anxiety; E83.42 Hypomagnesemia; G89.29 Other chronic pain; F11.90 Opioid use, unspecified, uncomplicated; Z79.899 Other long term (current) drug therapy; Z79.82 Long term (current) use of aspirin; Z51.5 Encounter for palliative care